=== PATIENT | female | born 1990 | race Caucasian/White ===

== ENCOUNTER 2017-12-31 16:10 | Emergency (ER) | payer OTHER ==
[2017-12-31 16:27] VITALS: BMI 23.8
--- NOTE | 2017-12-31 16:28 | PDOC ---
Rapid Medical Evaluation Time Seen by Provider: 12/31/17 16:24 Medical Evaluation: Allergies Allergy/AdvReac Type Severity Reaction Status Date / Time No Known Allergies Allergy Verified 12/31/17 16:24 12/31/17 16:25 I have performed a brief in-person evaluation of this patient. The patient presents with a chief complaint of: , 6 weeks with abdominal pain since Saturday States pain started in mid abdomen, now in lower mid pubic area Reports nausea, denies , vomiting diarrhea cramping or vaginal bleeding Pertinent physical exam findings are: NAD even and unlabored non tender abdomen I have ordered the following: urine , urinalysis The patient will proceed to the ED for further evaluation.
[2017-12-31 17:28] LABS: HCG,QUALITATIVE URINE Positive
[2017-12-31 17:29] LABS: URINE APPEARANCE SLCLOUDY; URINE BILIRUBIN NEGATIVE (<2.0 mg/dL); URINE COLOR YELLOW; URINE GLUCOSE (UA) NEGATIVE (NEGATIVE); URINE KETONE TRACE (NEGATIVE); URINE LEUK ESTERASE 2+ (NEGATIVE); URINE NITRITE NEGATIVE (NEGATIVE); URINE PROTEIN NEGATIVE (NEGATIVE); URINE UROBILINOGEN NEGATIVE mg/dL (0.2-1.0)
[2017-12-31 17:38] LABS: EPI CELLS FEW /HPF (FEW); URINE MUCUS RARE
[2017-12-31 17:39] LABS: BASO % 0.9 % (0-2.0); HEMATOCRIT 38.7 % (32.4-45.2); HEMOGLOBIN 12.8 GM/dL (10.7-15.3); LYMPH % 28.2 % (8-40); MCH 27.9 pg (25.7-33.7); MCHC 33.2 g/dl (32.0-36.0); MEAN CELL VOLUME 84.1 fl (80-96); MEAN PLT VOLUME 7.7 fl (7.5-11.1); NEUT % 59.9 % (42.8-82.8); PLATELET COUNT 240 K/MM3 (134-434); RDW 13.4 % (11.6-15.6); WHITE BLOOD COUNT 6.1 K/mm3 (4.0-10.0)
[2017-12-31] MEDS ORDERED: SODIUM CHLORIDE 1,000 ML IV SCH (17:45)
--- NOTE | 2017-12-31 17:45 | PDOC ---
History of Present Illness - General Chief Complaint: Pain Stated Complaint: ABDOMINAL PAIN @6 WKS Time Seen by Provider: 12/31/17 16:24 - History of Present Illness Initial Comments: 12/31/17 17:39 27 year old woman A0 presents with mid abdominal pain and nausea and constipation w/ lower caiber stool that was intermittent and started 5 days ago. The patient came in today because she was lifting something heavy 1 day ago and felt that her abdominal pain worsened and is now described as pins and needles. The pain does not increase or decrease with eating. She has no history of STDs. [facility] November 14. Past History - Past Medical History Allergies/Adverse Reactions: Allergies Allergy/AdvReac Type Severity Reaction Status Date / Time No Known Allergies Allergy Verified 12/31/17 16:24 Home Medications: Ambulatory Orders Vitamins (Sjr) - 1 tab PO DAILY #30 tablet 09/01/13 Asthma: No Cancer: No Cardiac Disorders: No COPD: No Diabetes: No HTN: No Seizures: No Thyroid Disease: No Other medical history: 3 - Reproductive History Is Patient Now?: Yes Therapeutic (s) & number: Yes - Suicide/Smoking/Psychosocial Hx Smoking History: Never smoked Have you smoked in the past 12 months: No Information on smoking cessation initiated: No Hx Alcohol Use: No Drug/Substance Use Hx: No Substance Use Type: None Hx Substance Use Treatment: No *Physical Exam - Vital Signs Last Vital Signs Temp Pulse Resp BP Pulse Ox 98.9 F 67 16 111/72 99 12/31/17 16:24 12/31/17 16:24 12/31/17 16:24 12/31/17 16:24 12/31/17 16:24 ED Treatment Course - LABORATORY CBC & Chemistry Diagram: 12/31/17 17:28 12/31/17 17:28 - ADDITIONAL ORDERS Additional order review: Laboratory Results 12/31/17 17:08 Urine Color Yellow Urine Appearance Slcloudy Urine pH 6.0 Ur Specific [place] 1.026 Urine Protein Negative Urine Glucose (UA) Negative Urine Ketones Trace H Urine Blood Negative Urine Nitrite Negative Urine Bilirubin Negative Urine Urobilinogen Negative Ur Leukocyte Esterase 2+ H D Urine HCG, Qual Positive Medical Decision Making - Medical Decision Making 12/31/17 20:38 US: 4.7x4.4x3.7cm L complex ovarian cyst Roberto Carlos contacted will see patient in clinic. *DC/Admit/Observation/Transfer Diagnosis at time of Disposition: Abdominal pain, Ovarian cyst - Discharge Dispostion Disposition: HOME Condition at time of disposition: Stable Decision to Admit order: No - Referrals Referrals: Leonel Azevedo MD [Staff Physician] - - Patient Instructions Printed Discharge Instructions: DI for Ovarian Cyst, DI for Abdominal Pain -- Early Additional Instructions: You were seen in the ED for complaints of abdominal pain. In the ED you were evaluated with labwork and imaging. Your results were unremarkable. There does not appear to be an acute need for immediate hospitalization. You are advised to follow up with your primary care physician within 1 week. You were given a referral to [facility] and are advised to see them in 48 hours for repeat labwork and imaging. If you are unable to schedule a visit with [facility] please return to the ED w/in 48 hours. Return to the ED immediately if you experience worsening abdominal pain, vaginal bleeding or discharge, excess vomiting, diarrhea or fevers. Usted fue visto en el servicio de urgencias por quejas de dolor abdominal. En el servicio de urgencias se le evalu con trabajo de laboratorio e imgenes. Catrachita resultados no fueron notables. No parece quinn marco antonio necesidad aguda de hospitalizacin inmediata. Se recomienda realizar un seguimiento con rodriguez mdico de atencin primaria dentro de marco antonio semana. Recibi marco antonio derivacin a un obstetra / gineclogo y se le recomienda que los nicolle en 48 horas para repetir el trabajo de laboratorio y las imgenes. Si no puede programar marco antonio visita con un obstetra / gineclogo, regrese al ED dentro de las 48 horas. Regrese al servicio de urgencias inmediatamente si experimenta un empeoramiento del dolor abdominal, sangrado o flujo vaginal, exceso de vmitos, diarrea o fiebre. - Post Discharge Activity
[2017-12-31 18:19] LABS: ALBUMIN 4.1 g/dl (3.4-5.0); ALK PHOS 63 U/L (45-117); ANION GAP 6 MMOL/L (8-16); BILIRUBIN,TOTAL 0.4 mg/dL (0.2-1); BLOOD UREA NITROGEN 10 mg/dL (7-18); CALCIUM 9.2 mg/dL (8.5-10.1); CHLORIDE 106 mmol/L (98-107); CO2 25 mmol/L (21-32); CREATININE 0.4 mg/dL (0.55-1.3); GLUCOSE,RANDOM 81 mg/dL (74-106); POTASSIUM 3.9 mmol/L (3.5-5.1); SGOT/AST 13 U/L (15-37); SGPT/ALT 19 U/L (13-61); SODIUM 137 mmol/L (136-145); TOT PROT 7.8 g/dl (6.4-8.2)
[2017-12-31 18:54] VITALS: BP 104/65; PULSE 63; TEMP 98.4
--- NOTE | 2017-12-31 19:33 | PDOC ---
Attending Attestation - HPI HPI: 12/31/17 20:32 The patient is a 27 year old female(A0), 6 weeks with no significant PMH who presents to the emergency department with abdominal pain and nausea for 4 days. The patient states that her abdominal pain is located in the lower abdominal region and was worsened after heavy lifting and described the pain as pins and needles. The patient also reports some associated constipation for 5 days , describing very small bowel movements. The patient denies any other symptoms. She denies any vaginal bleed or discharge. She denies any fever, chills, vomiting, diarrhea, or urinary symptoms. She denies any chest pain, shortness of breath, headache of dizziness. The patient denies any other complaints. Documentation prepared by Cedrick Echeverria, acting as medical billing and coding instructor for Madeline Romero MD. - Physicial Exam PE: 12/31/17 20:35 GENERAL: The patient is in no acute distress. HEAD: Normal with no signs of trauma. EYES: PERRLA, EOMI, sclera anicteric, conjunctiva clear. ENT: Ears normal, nares patent, oropharynx clear without exudates. Moist mucous membranes. NECK: Normal range of motion, supple without lymphadenopathy, JVD, or masses. LUNGS: Breath sounds equal, clear to auscultation bilaterally. No wheezes, and no crackles. HEART:Regular rate and rhythm, normal S1 and S2 without murmur, rub or gallop. ABDOMEN: (+)lower abdominal crampy pain, suprapubic tenderness. Soft, normoactive bowel sounds. No guarding, no rebound. No masses palpable. EXTREMITIES: Normal range of motion, no edema. No clubbing or cyanosis. No erythema, or tenderness. NEUROLOGICAL: Cranial nerves II through XII grossly intact. Normal speech. No focal neurological deficits. MUSCULOSKELETAL: Back non-tender to palpation, no CVA tenderness SKIN: Warm, Dry, normal turgor, no rashes or lesions noted. Documentation prepared by Cedrick Echeverria, acting as medical billing and coding instructor for Madeline Romero MD. <Cedrick Echeverria - Last Filed: 12/31/17 20:35> - Resident Resident Name: Jen Chand - ED Attending Attestation I have performed the following: I have examined & evaluated the patient, The case was reviewed & discussed with the resident, I agree w/resident's findings & plan, Exceptions are as noted - Medical Decision Making 12/31/17 20:44 27 yo F presenting to the ER with a complaint of abdominal cramping pain No fevers or chills No vaginal bleeding (+) constipation B[facility] Blood Type : O+ US: fluid collection in the Uterus, ? too early to see gestation sac/ pole Left ovarian complex cyst, (+) flow, small fluid collection Will d/c to home with bowel regimen Pt told she MUST return for repeat BHCG and US I am not sure if the findings in the uterus represent a OR if the ovarian findings represent an ectopic Pt also counseled to return for severe pain, bleeding, dizziness, lightheadedness Pt told to see ob gyn physician assistant in 2 days and if she is unable to do so, she must come to the ER Clinical impression: abdominal pain in early vs. ectopic , initial presentation <Madeline Romero - Last Filed: 12/31/17 20:49>
== END 2017-12-31 20:44 | disposition home or self-care (01) ==
LOC: JER 16:10
PROC: 3E0337Z Introduction of Electrolytic and Water Balance Substance into Peripheral Vein, Percutaneous Approach (ICD-10-PCS; principal; 2017-12-31)
DX: O26.891 Other specified pregnancy related conditions, first trimester (principal); O34.81 Maternal care for other abnormalities of pelvic organs, first trimester; N83.292 Other ovarian cyst, left side; Z3A.01 Less than 8 weeks gestation of pregnancy
CPT/HCPCS: 36415; 76817-TC; 80053; 81003; 81015; 84702; 84703; 85025; 87086; 96360; 96361; 99283-25; J7030

== ENCOUNTER 2018-01-02 13:35 | Emergency (ER) | payer OTHER ==
[2018-01-02 13:40] VITALS: BP 102/65; PULSE 66; TEMP 98; BMI 22.4
--- NOTE | 2018-01-02 16:00 | PDOC ---
History of Present Illness - General Chief Complaint: Revisit,Wound Recheck Stated Complaint: FOLLOW UP Time Seen by Provider: 01/02/18 14:12 History Source: Patient, Old Records Exam Limitations: No Limitations - History of Present Illness Initial Comments: 01/02/18 15:53 HISTORY OF PRESENT ILLNESS: 27-year-old presents emergency department for reevaluation of beta levels and ultrasound. Patient was seen and evaluated in this emergency department on 12/31 which revealed transvaginal client technical specialist could not identify an intrauterine . At that time the patient's beta levels approximately 1000. Patient reports resolution of abdominal pain since that first visit and is here for reevaluation. No recent travel or sick contacts. PAST MEDICAL HISTORY: anemia SURGICAL HISTORY: Denies ALLERGIES: No known drug allergies REVIEW OF SYSTEMS General/Constitutional: Denies fever or chills. Denies weakness, weight change. HEENT: Denies change in vision. Denies ear pain or discharge. Denies sore throat. Cardiovascular: Denies chest pain or shortness of breath. Respiratory: Denies cough, wheezing, or hemoptysis. Gastrointestinal: Denies nausea, vomiting, diarrhea or constipation. Denies rectal bleeding. Genitourinary: Denies dysuria, frequency, or change in urination. Musculoskeletal: Denies joint or muscle swelling or pain. Denies neck or back pain. Skin and breasts: Denies rash or easy bruising. Neurologic: Denies headache, vertigo, loss of consciousness, or loss of sensation. Psychiatric: Denies depression or anxiety. Endocrine: Denies increased thirst. Denies abnormal weight change. Hematologic/Lymphatic: Denies anemia, easy bleeding, or history of blood clots. Allergic/Immunologic: Denies hives or skin allergy. Denies latex allergy. PHYSICAL EXAM General Appearance: Well-appearing, appropriately dressed. No apparent distress , no intoxication. HEENT: EOMI, PERRLA, normal ENT inspection, normal voice, TMs normal, pharynx normal. No conjunctival pallor. No photophobia, scleral icterus. Neck: Supple. Trachea midline. No tenderness, rigidity, carotid bruit, stridor , lymphadenopathy, or thyromegaly. Respiratory/Chest: Lungs CTAB. No shortness of breath, chest tenderness, respiratory distress, accessory muscle use. No crackles, rales, rhonchi, stridor , wheezing, dullness Cardiovascular: RRR. S1, S2. No JVD, murmur, bradycardia, tachycardia. Vascular Pulses: Dorsalis-Pedis (R): 2+, Dorsalis-Pedis (L): 2+ Gastrointestinal/Abdominal: Normal bowel sounds. Abdomen soft, non-distended. No tenderness or rebound tenderness. No organomegaly, pulsatile mass, guarding, hernia, hepatomegaly, splenomegaly. Lymphatic: No adenopathy, tenderness. Musculoskeletal/Extremities: Normal inspection. FROM of all extremities, normal capillary refill. Pelvis Stable. No CVA tenderness. No tenderness to extremities, pedal edema, swelling, erythema or deformity. Integumentary: Appropriate color, dry, warm. No cyanosis, erythema, jaundice or rash Neurologic: tour leader II-XII intact. Fully oriented, alert. Appropriate mood/affect. Motor strength 5/5. No appreciable EOM palsy, facial droop or sensory deficit. Past History - Past Medical History Allergies/Adverse Reactions: Allergies Allergy/AdvReac Type Severity Reaction Status Date / Time No Known Allergies Allergy Verified 01/02/18 13:36 Home Medications: Ambulatory Orders NK [No Known Home Medication] 01/02/18 Asthma: No Cancer: No Cardiac Disorders: No COPD: No Diabetes: No HTN: No Seizures: No Thyroid Disease: No - Reproductive History Therapeutic (s) & number: Yes - Immunization History Immunization Up to Date: Yes - Suicide/Smoking/Psychosocial Hx Smoking History: Never smoked Have you smoked in the past 12 months: No Hx Alcohol Use: No Drug/Substance Use Hx: No Substance Use Type: None Hx Substance Use Treatment: No *Physical Exam - Vital Signs Last Vital Signs Temp Pulse Resp BP Pulse Ox 98.0 F 66 18 102/65 100 01/02/18 13:37 01/02/18 13:37 01/02/18 13:37 01/02/18 13:37 01/02/18 13:37 ED Treatment Course - ADDITIONAL ORDERS Additional order review: Laboratory Results 01/02/18 14:15 Beta HCG, Quant 2517.7 - RADIOLOGY Radiology Studies Ordered: Category Date Time Status TRANSVAGINAL US PREG [US] Stat Ultrasound 01/02/18 14:19 Completed Medical Decision Making - Medical Decision Making 01/02/18 16:01 A/P: 27-year-old female here for follow-up beta and ultrasound testing Beta level 2 days ago was 1091. Ultrasound unable to visualize IUP at that time. Repeat beta, ultrasound, type and screen beta-2517 TVUS- No visible IUP. ?early vs. ectopic This patient is currently pain-free and had an appropriate increase in beta hCG I will discharge the patient home to follow up with her OB or return to the emergency department for 2 days for repeat blood and ultrasound testing. *DC/Admit/Observation/Transfer Diagnosis at time of Disposition: First trimester - Discharge Dispostion Disposition: HOME Condition at time of disposition: Stable Decision to Admit order: No - Referrals - Patient Instructions Additional Instructions: Return to your OB or the emergency department in 2 days for repeat blood testing and ultrasound. The OB clinic is located on to [facility] in [facility]. Return to the emergency department sooner if you experience any vaginal bleeding , severe pain, vaginal discharge or any other concerns. Regrese a rodriguez obstetra o al departamento de emergencias en 2 li para repetir las pruebas de carlos y la ecografa. La clnica OB se encuentra en [facility] en [facility]. Regrese al departamento de emergencias antes si experimenta sangrado vaginal, dolor intenso, flujo vaginal o cualquier otra inquietud. - Post Discharge Activity
== END 2018-01-02 16:04 | disposition home or self-care (01) ==
LOC: JERFT 13:35
DX: O36.80X0 Pregnancy with inconclusive fetal viability, not applicable or unspecified (principal); Z3A.01 Less than 8 weeks gestation of pregnancy
CPT/HCPCS: 36415; 76817-TC; 84702; 86850; 86900; 86901; 99281-25

== ENCOUNTER 2018-02-14 12:35 | Emergency (ER) | payer OTHER ==
[2018-02-14 12:50] VITALS: BP 101/54; PULSE 76; TEMP 97.9; BMI 22.6
--- NOTE | 2018-02-14 13:06 | PDOC ---
History of Present Illness - General Chief Complaint: Revisit,Radiology Variance Stated Complaint: FOLLOW UP () Time Seen by Provider: 02/14/18 12:50 History Source: Patient Exam Limitations: No Limitations - History of Present Illness Initial Comments: 02/14/18 13:05 27 yr female LMP 10/27/17 presents to ER for follow up. Pt has not had care as of yet. Pt seen in this ER last month for missed period. Today pt has no pain no vaginal bleeding. 02/14/18 13:10 Past History - Past Medical History Allergies/Adverse Reactions: Allergies Allergy/AdvReac Type Severity Reaction Status Date / Time No Known Allergies Allergy Verified 02/14/18 12:53 Home Medications: Ambulatory Orders NK [No Known Home Medication] 01/02/18 Asthma: No Cancer: No Cardiac Disorders: No COPD: No Diabetes: No HTN: No Seizures: No Thyroid Disease: No - Reproductive History Therapeutic (s) & number: Yes - Immunization History Immunization Up to Date: Yes - Suicide/Smoking/Psychosocial Hx Smoking History: Never smoked Have you smoked in the past 12 months: No Hx Alcohol Use: No Drug/Substance Use Hx: No Substance Use Type: None Hx Substance Use Treatment: No Review of Systems - Review of Systems Able to Perform ROS?: Yes Is the patient limited Lao proficient: No Constitutional: No: Symptoms Reported HEENTM: No: Symptoms Reported Respiratory: No: Symptoms reported Cardiac (ROS): No: Symptoms Reported ABD/GI: No: Symptoms Reported : No: Symptoms Reported Musculoskeletal: No: Symptoms Reported Integumentary: No: Symptoms Reported Neurological: No: Symptoms reported *Physical Exam - Vital Signs Last Vital Signs Temp Pulse Resp BP Pulse Ox 97.9 F 76 18 101/54 L 98 02/14/18 12:48 02/14/18 12:48 02/14/18 12:48 02/14/18 12:48 02/14/18 12:48 - Physical Exam General Appearance: Yes: Nourished, Appropriately Dressed HEENT: positive: EOMI, BORA, TMs Normal, Pharynx Normal Neck: positive: Supple. negative: Tender Respiratory/Chest: positive: Lungs Clear, Normal Breath Sounds Cardiovascular: positive: Regular Rhythm, Regular Rate Gastrointestinal/Abdominal: positive: Normal Bowel Sounds, Soft Musculoskeletal: positive: Normal Inspection Extremity: positive: Normal Capillary Refill, Normal Inspection, Normal Range of Motion Integumentary: positive: Normal Color, Dry, Warm Neurologic: positive: Fully Oriented, Alert, Normal Mood/Affect, Normal Response , Motor Strength 5/5 Moderate Sedation - Procedure Monitoring Vital Signs: Procedure Monitoring Vital Signs Temperature 97.9 F 02/14/18 12:48 Pulse Rate 76 02/14/18 12:48 Respiratory Rate 18 02/14/18 12:48 Blood Pressure 101/54 L 02/14/18 12:48 O2 Sat by Pulse Oximetry (%) 98 02/14/18 12:48 Medical Decision Making - Medical Decision Making 02/14/18 13:12 cc: missed period here for prosthetics technician eval pt has no pain or vaginal bleeding pt has not had care to date I will check urine pt is asymptomatic *DC/Admit/Observation/Transfer Diagnosis at time of Disposition: Positive urine test - Discharge Dispostion Disposition: HOME Condition at time of disposition: Good - Referrals Referrals: [facility] [Outside] Milli Patrick MD [Staff Physician] - - Patient Instructions Additional Instructions: please follow up with a abstract searcher/OB for further care of your start taking vitamins (any over the counter vitamins) sold at any pharmacy, [facility], [facility] , [facility] Return to ER for any ABDOMINAL PAIN , VAGINAL BLEEDING, BACK PAIN , FEVER OR ANY OTHER CONCERNING SYMPTOMS - Post Discharge Activity
[2018-02-14 13:09] LABS: HCG,QUALITATIVE URINE Positive
[2018-02-14 13:23] LABS: URINE APPEARANCE CLEAR; URINE BILIRUBIN NEGATIVE (<2.0 mg/dL); URINE COLOR YELLOW; URINE GLUCOSE (UA) NEGATIVE (NEGATIVE); URINE KETONE TRACE (NEGATIVE); URINE LEUK ESTERASE 2+ (NEGATIVE); URINE NITRITE NEGATIVE (NEGATIVE); URINE PROTEIN NEGATIVE (NEGATIVE); URINE UROBILINOGEN NEGATIVE mg/dL (0.2-1.0)
[2018-02-14 13:57] LABS: EPI CELLS FEW /HPF (FEW); URINE MUCUS RARE
== END 2018-02-14 13:20 | disposition home or self-care (01) ==
LOC: JERFT 12:35
DX: Z32.01 Encounter for pregnancy test, result positive (principal)
CPT/HCPCS: 81003; 81015; 84703; 99281-25

== ENCOUNTER 2018-09-02 13:45 | Inpatient (IN) | payer OTHER ==
[2018-09-02] MEDS ORDERED: BUTORPHANOL TARTRATE 1 MG/ML VIAL IVPB ONE (16:52)
[2018-09-02] MEDS ORDERED: ELECTROLYTE-148 SOLN 1,000 ML IV SCH (17:00)
--- NOTE | 2018-09-02 17:02 | HP ---
Past Medical History - Primary Care Physician PCP:: Aristeo Herrera - Admission Chief Complaint: labor History Source: Patient Limitations to Obtaining History: No Limitations - Past Medical History HEAD OF ADVERTISING: No: Alzheimer's, CVA, Dementia, Migraine, Multiple Sclerosis, Peripheral Neuropathy, Parkinson's, Seizure, Syncope, TIA, Vertigo, Other Cardiovascular: No: AFIB, Aneurysm, Aortic Insufficiency, Aortic Stenosis, CAD, CHF, Deep Vein Thrombosis, HTN, Hyperlipdemia, PR, Mitral Insufficiency, Mitral Stenosis, Murmur, Pulmonary Hypertension, Other Pulmonary: No: Asthma, Bronchitis, Cancer, COPD, O2 Dependent, Pneumonia, Previously Intubated, Pulmonary Embolus, Pulmonary Fibrosis, Sleep Apnea, Other Gastrointestinal: No: Ascites, Cancer, Constipation, Crohn's Disease, Diverticulitis, Diverticulosis, Esophageal Varices, Gastritis, GERD, GI Bleed, Hemorrhoids, Hiatal Hernia, Inflamatory Bowel Disease, Irritable Bowel Disease, Pancreatitis, Peptic Ulcer Disease, Ulcerative Colitis, Other Hepatobiliary: No: Cirrhosis, Cholelithiasis, Cholecystitis, Choledocholithiasis , Hepatitis A, Hepatitis B, Hepatitis C, Other Renal/: No: Renal Failure, Renal Inusuff, BPH, Cancer, Hematuria, Hemodialysis , Neurogenic Bladder, Renal Calculi, UTI, Other Reproductive: No: Ectopic , Endometriosis, Fibroids, PID, Polycystic Ovary Syndrome, Postmenopausal, Other ...: 3 ...Para: 1 ...Term: 1 ...Spon : 1 ...LMP: 11/14/17 ... Weeks Gestation by Dates: 39.5 ...EDC by Dates: 09/04/18 ...EDC by Sono: 09/04/18 Heme/Onc: No: Anemia, B12 Deficiency, Bleeding Disorder, Cancer, Current Chemotherapy, Current Radiation Therapy, Hemochromatosis, Hypercoaguable State, Myeloproliferative Synd, Sickle Cell Disease, Sickle Cell Trait, Thrombocytopenia, Other Infectious Disease: No: AIDS, C-Diff, Herpes Zoster, HIV, MRSA, STD's, Tuberculosis, VREF, Other Psych: Yes: Other (h/o ?sucidal attempt on 05/24/13 by taking 8 tabs of asprin 325 mg each, after argument with .she was evaluated in er, & consult by psychiatrist was done in er & cleared.. Presently she has no sucidal ideations.) . No: Addictions, Anxiety, Bipolar, Depression, Panic, Psychosis, Schizophrenia Musculoskeletal: No: Bursitis, Chronic low back pain, Hemiparesis, Hemiplegia, Osteoarthritis, Paraplegia, Other Rheumatology: No: Fibromyalgia, Gout, Lupus, Rheumatoid Arthritis, Sarcoidosis, Vasculitis, Other ENT: No: Allergic Rhinitis, Sinusitis, Other Endocrine: No: Karlos's Disease, [place]'s Disease, Diabetes Insipidus, Diabetes Mellitus, Hyperparathyroidism, Hyperthyroidism, Hypothyroidism, Osteopenia, SIADH, Other Dermatology: No: Basal Cell, Cellulitis, Eczema, Melanoma, Psoriasis, Squamous Cell, Other - Past Surgical History Past Surgical History: Yes: None Hx Myomectomy: No Hx Transabdominal Cerclage: No - Smoking History Smoking history: Never smoked Have you smoked in the past 12 months: No - Alcohol/Substance Use Hx Alcohol Use: No History of Substance Use: reports: None - Social History History of Recent Travel: No Home Medications - Allergies Allergies/Adverse Reactions: Allergies Allergy/AdvReac Type Severity Reaction Status Date / Time No Known Allergies Allergy Verified 02/14/18 12:53 - Home Medications Home Medications: Ambulatory Orders Vitamins (Sjr) - 1 tab PO DAILY 09/02/18 Family Disease History - Family Disease History Family History: Unremarkable Review of Systems - Review of Systems Constitutional: reports: No Symptoms Eyes: reports: No Symptoms HENT: reports: No Symptoms Neck: reports: No Symptoms Cardiovascular: reports: No Symptoms Respiratory: reports: No Symptoms Gastrointestinal: reports: No Symptoms Genitourinary: reports: No Symptoms Breasts: reports: No Symptoms Reported Musculoskeletal: reports: No Symptoms Integumentary: reports: No Symptoms Hematology/Lymphatic: reports: No Symptoms Psychiatric: reports: No Symptoms Physical Exam - Maternity Vital Signs: Vital Signs Temperature 98.3 F 09/02/18 14:53 Pulse Rate 70 09/02/18 14:53 Respiratory Rate 20 09/02/18 14:53 Blood Pressure 121/69 09/02/18 14:53 O2 Sat by Pulse Oximetry (%) Constitutional: Yes: Well Nourished Eyes: Yes: WNL HENT: Yes: WNL Neck: Yes: Supple Breast(s): Yes: Other (deferred) - Abdominal Exam/OB Number of Fetuses: Single Presentation: Vertex Contractions: Yes Regularity: Regular Intensity: Unaware Monitor Mode: External Category: I Accelerations: Uniform Decelerations: None - Vaginal Exam/OB Vaginal Bleediing: No Speculum Exam: No Dilatation (cm): 5 Effacement (%): 60 Amniotic Membrane Status: Bulging Presentation: Vertex/Position Station: -3 - Physical Exam Musculoskeletal: Yes: WNL Extremities: Yes: WNL Edema: Yes Edema: LLE: Trace, RLE: Trace Integumentary: Yes: WNL ...Motor Strength: WNL Psychiatric: Yes: Alert, Oriented - Labs Lab Results: ordered Imaging - Results Other: Other (Official sonos reviewed) Problem List - Problems (1) Code(s): Z34.90 - ENCNTR FOR SUPRVSN OF NORMAL , UNSP, UNSP TRIMESTER Qualifiers: Weeks of gestation: 39 weeks Qualified Code(s): Z3A.39 - 39 weeks gestation of Assessment/Plan 27 y/o @ 39.5wks, active labor, GBS negative, reassuring maternal and statuses. -Expectant management -IV pain control as requested by patient
[2018-09-02 17:31] VITALS: BMI 27.3
[2018-09-02] MEDS ORDERED: DEXTROSE 5%-LACTATED RINGERS 1,000 ML IV SCH (18:00)
[2018-09-02] MEDS ORDERED: PROMETHAZINE HCL 25 MG/1 ML VIAL ONE (18:17)
[2018-09-02] MEDS ORDERED: BUTORPHANOL TARTRATE 1 MG/ML VIAL ONE (18:17)
[2018-09-02 18:23] LABS: BASO % 0.4 % (0-2.0); EOS % 0.1 % (0-4.5); HEMATOCRIT 35.4 % (32.4-45.2); HEMOGLOBIN 11.7 GM/dL (10.7-15.3); LYMPH % 8.4 % (8-40); MCH 26.9 pg (25.7-33.7); MCHC 32.9 g/dl (32.0-36.0); MEAN CELL VOLUME 81.8 fl (80-96); MEAN PLT VOLUME 9.2 fl (7.5-11.1); MONO % 4.4 % (3.8-10.2); NEUT % 86.7 % (42.8-82.8); PLATELET COUNT 185 K/MM3 (134-434); RBC 4.33 M/mm3 (3.60-5.2); RDW 13.6 % (11.6-15.6); WHITE BLOOD COUNT 11.1 K/mm3 (4.0-10.0)
[2018-09-02 18:26] LABS: INR 0.92 (0.83-1.09); PROTHROMBIN TIME (PATIENT) 10.9 SEC (9.7-13.0)
[2018-09-02] MEDS ORDERED: OXYTOCIN 20 UNITS in 0.9% NS 20 UNIT/1,000 ML INFUS.BAG IV ONE (18:29)
--- NOTE | 2018-09-02 18:31 | PN ---
Ante-Partal Exam - Subjective Subjective: Patient requested pain control Vital Signs: Vital Signs Temperature 98.6 F 09/02/18 18:00 Pulse Rate 74 09/02/18 18:00 Respiratory Rate 20 09/02/18 18:00 Blood Pressure 117/80 09/02/18 18:00 O2 Sat by Pulse Oximetry (%) Bleeding: No Headache: No Visual changes: No Right upper quadrant pain: No - Contractions Contractions: Yes Regularity: Regular Intensity: Mod/Strong Monitor Mode: External - Exam during Labor Heart Rate: 130 (reactive) Variability: Moderate Category: I Monitor Accelerations: Present Monitor Decelerations: None Exam: Vaginal Dilatation (cm): 6 Effacement (%): 60 Meconium Staining: Moderate Station: -3 Remarks: asynclitic, moderate meconium fluid - Assessment/Plan Assessment/Plan: 27 y/o @ 39.5wks, active labor, cat I FHT, S/P AROM, desiring Epidural but 1 hour delay due to anesthesia logistics. -IV pain control -Expectant management -Anticipate VD.
[2018-09-02] MEDS ORDERED: LIDOCAINE HCL 1% PRESERVATIVE FREE - 30ML VIAL ONE (18:34)
[2018-09-02] MEDS ORDERED: PROMETHAZINE HCL 25 MG/1 ML VIAL IVPB ONE (18:45)
[2018-09-02 19:03] LABS: BLOOD UREA NITROGEN 7.2 mg/dL (7-18); CALCIUM 8.5 mg/dL (8.5-10.1); CREATININE 0.5 mg/dL (0.55-1.3); POTASSIUM 3.8 mmol/L (3.5-5.1)
--- NOTE | 2018-09-02 19:48 | PN ---
Ante-Partal Exam - Subjective Subjective: Patient evaluated, for pain, and progression of labor Vital Signs: Vital Signs Temperature 98.7 F 09/02/18 19:00 Pulse Rate 72 09/02/18 19:00 Respiratory Rate 18 09/02/18 19:00 Blood Pressure 128/87 09/02/18 19:00 O2 Sat by Pulse Oximetry (%) Bleeding: No Headache: No Visual changes: No Right upper quadrant pain: No - Contractions Contractions: Yes Intensity: Strong Monitor Mode: External - Exam during Labor Heart Rate: 140 Variability: Moderate Category: I Monitor Accelerations: Present Monitor Decelerations: None Exam: Vaginal Dilatation (cm): 8 Effacement (%): 90 Presentation: Vertex (27 y/o @ 39.5 wks, AROM with meconium fluid, reassuring status, S/P IV pain control) Station: -2 - Assessment/Plan Assessment/Plan: 27 y/o @ 39.5 wks, AROM with meconium fluid, reassuring status, S/P IV pain control -Expectant management -Anticipate VD
[2018-09-02] MEDS ORDERED: WITCH HAZEL 50% (TUCKS) 40 PAD/JAR PAD TP PRN (20:32)
[2018-09-02] MEDS ORDERED: ACETAMINOPHEN 325 MG TABLET (FP) PO PRN (20:32)
[2018-09-02] MEDS ORDERED: IBUPROFEN 600 MG TABLET (FP) PO PRN (20:32)
[2018-09-02] MEDS ORDERED: BENZOCAINE 20% 57 GM BOTTLE TP PRN (20:32)
[2018-09-02] MEDS ORDERED: BENZOCAINE 28 GM HEMORRHOIDAL OINTMENT TP PRN (20:32)
--- NOTE | 2018-09-02 20:41 | PN ---
Delivery - Delivery Type of Anesthesia: None Episiotomy/Laceration: 2nd degree EBL (cc): 250 Delivery, Single - Stages of Labor Placenta: Yes: Spontaneous - Condition of Infant Radio Sales Account Executive/Fashion Intern Present: Yes Infant Gender: Female Position: OA - [place] Feeding Plan Initial Plan: Exclusive throughout hospitalization Remarks - Remarks Remarks: Patient delivered OA with maternal expulsive efforts, restituted to SHANITA, no nuchal cord. Shoulders delivered with difficulty followed by the rest of the body. Cord clamped after delay and placenta delivered spontaneously and intact, 3 VC. Exam revealed a 2nd degree lacerations, repaired with 2.0 byosin in standard fashion. Excellent hemostasis and reapproximation noted. Fundus is firm and rectal exam intact. Sponge/instrument count correct x 2 and confirmed by the nurse.
[2018-09-02] MEDS ORDERED: OXYTOCIN 20 UNITS in 0.9% NS 20 UNIT/1,000 ML INFUS.BAG IV SCH (20:45)
--- NOTE | 2018-09-03 07:08 | PN ---
Post Progress Note - Subjective Subjective: AMbulating, voiding, tolerating PO, lochia decreased Type of Delivery: Vital Signs: Vital Signs Temperature 98 F 09/03/18 06:00 Pulse Rate 62 09/03/18 06:00 Respiratory Rate 18 09/03/18 06:00 Blood Pressure 106/50 L 09/03/18 06:00 O2 Sat by Pulse Oximetry (%) 100 09/02/18 21:30 Breast Exam: Yes: Other (deferred) Uterus: Yes: Fundus Firm Abdomen/GI: Yes: Abdomen soft Lochia, amount: Small Extremities: Yes: Calves non-tender Perineum: Yes: Laceration Activity: Ambulating - Labs Labs: CBC WBC 11.1 K/mm3 (4.0-10.0) H 09/02/18 17:55 RBC 4.33 M/mm3 (3.60-5.2) 09/02/18 17:55 Hgb 11.7 GM/dL (10.7-15.3) 09/02/18 17:55 Hct 35.4 % (32.4-45.2) 09/02/18 17:55 MCV 81.8 fl (80-96) 09/02/18 17:55 MCH 26.9 pg (25.7-33.7) 09/02/18 17:55 MCHC 32.9 g/dl (32.0-36.0) 09/02/18 17:55 RDW 13.6 % (11.6-15.6) 09/02/18 17:55 Plt Count 185 K/MM3 (134-434) D 09/02/18 17:55 MPV 9.2 fl (7.5-11.1) D 09/02/18 17:55 Absolute Neuts (auto) 9.6 K/mm3 (1.5-8.0) H 09/02/18 17:55 Neutrophils % 86.7 % (42.8-82.8) H D 09/02/18 17:55 Lymphocytes % 8.4 % (8-40) D 09/02/18 17:55 Monocytes % 4.4 % (3.8-10.2) 09/02/18 17:55 Eosinophils % 0.1 % (0-4.5) D 09/02/18 17:55 Basophils % 0.4 % (0-2.0) 09/02/18 17:55 Nucleated RBC % 0 % (0-0) 09/02/18 17:55 Problem List - Problems (1) Code(s): Z34.90 - ENCNTR FOR SUPRVSN OF NORMAL , UNSP, UNSP TRIMESTER Qualifiers: Weeks of gestation: 39 weeks Qualified Code(s): Z3A.39 - 39 weeks gestation of Assessment/Plan PPD # 1 in stable condition, all questions answered and PP instructions care reviewed -Continue PP care -AM CBC -Anticipate D/C home tomorrow
[2018-09-03 07:19] LABS: BASO % 0.5 % (0-2.0); EOS % 0.4 % (0-4.5); HEMATOCRIT 31.2 % (32.4-45.2); HEMOGLOBIN 10.5 GM/dL (10.7-15.3); MCH 27.4 pg (25.7-33.7); MCHC 33.7 g/dl (32.0-36.0); MEAN CELL VOLUME 81.3 fl (80-96); MEAN PLT VOLUME 9.2 fl (7.5-11.1); MONO % 9.6 % (3.8-10.2); NEUT % 77.5 % (42.8-82.8); PLATELET COUNT 183 K/MM3 (134-434); RBC 3.84 M/mm3 (3.60-5.2); RDW 13.2 % (11.6-15.6); WHITE BLOOD COUNT 12.2 K/mm3 (4.0-10.0)
[2018-09-03] MEDS ORDERED: DIPHTH,PERTUSS(ACELL),TET 0.5 ML DISP.SYRIN IM ONE (10:00)
[2018-09-03] MEDS: PRENATAL VITAMINS W/ FOLIC ACID TABLET (FP) PO SCH (11:18)
--- NOTE | 2018-09-04 07:27 | DS ---
Physical Examination Vital Signs: Vital Signs Temperature 98.3 F 09/03/18 21:30 Pulse Rate 65 09/03/18 21:30 Respiratory Rate 17 09/03/18 21:30 Blood Pressure 108/61 09/03/18 21:30 O2 Sat by Pulse Oximetry (%) 100 09/02/18 21:30 Constitutional: Yes: Well Nourished, No Distress, Calm Eyes: Yes: WNL, Conjunctiva Clear, EOM Intact HENT: Yes: WNL, Atraumatic, Normocephalic Neck: Yes: WNL, Supple, Trachea Midline Cardiovascular: Yes: WNL, Regular Rate and Rhythm Respiratory: Yes: WNL, Regular, CTA Bilaterally Gastrointestinal: Yes: WNL, Normal Bowel Sounds Musculoskeletal: Yes: WNL Extremities: Yes: WNL Edema: No Integumentary: Yes: WNL Neurological: Yes: WNL, Alert, Oriented ...Motor Strength: WNL Psychiatric: Yes: WNL Labs: CBC, BMP 09/03/18 06:30 09/02/18 17:55 Discharge Summary Reason For Visit: LABOR Current Active Problems (Acute) Procedures: Principal: Hospital Course: Patient presented in active labor She had an uncomplicated She met all milestones She was discharged home in stable condition Romy Erwin MD - Instructions Diet, Activity, Other Instructions: Regular Diet Follow up in 4-6 weeks in the office Referrals: Aristeo Herrera MD [Staff Physician] - Disposition: HOME - Home Medications Comprehensive Discharge Medication List: Ambulatory Orders Vitamins (Sjr) - 1 tab PO DAILY 09/02/18 Ibuprofen 600 mg PO Q6H PRN #30 tablet 09/03/18
[2018-09-04 08:32] VITALS: BP 103/56; PULSE 61; TEMP 98.4
[2018-09-04] MEDS: PRENATAL VITAMINS W/ FOLIC ACID TABLET (FP) PO SCH (09:39)
== END 2018-09-04 14:00 | disposition home or self-care (01) | DRG 560 ==
LOC: JDEL 13:45 → JLDR 16:45 → J3W 22:26
PROVIDERS: ADMIT Student in an Organized Health Care Education/Training Program; ATTEND Student in an Organized Health Care Education/Training Program
PROC: 10E0XZZ Delivery of Products of Conception, External Approach (ICD-10-PCS; principal; 2018-09-02)
PROC: 0KQM0ZZ Repair Perineum Muscle, Open Approach (ICD-10-PCS; 2018-09-02)
DX: O77.0 Labor and delivery complicated by meconium in amniotic fluid (principal); O70.1 Second degree perineal laceration during delivery; Z3A.39 39 weeks gestation of pregnancy; Z37.0 Single live birth
CPT/HCPCS: 36415; 59409; 80048; 85025; 85610; 86593; 86850; 86900; 86901; 90715

== ENCOUNTER 2020-12-28 21:32 | Emergency (ER) | payer OTHER ==
[2020-12-28 21:47] VITALS: BP 128/82; PULSE 69; TEMP 98.3; BMI 24.5
== END 2020-12-29 00:42 | disposition home or self-care (01) ==
LOC: JERFT 21:32
DX: B86 Scabies (principal)
CPT/HCPCS: 99283-25

== ENCOUNTER 2021-01-05 19:20 | Emergency (ER) | payer OTHER ==
[2021-01-05 19:53] VITALS: BP 117/85; PULSE 71; TEMP 98.6; BMI 24.5
[2021-01-05] MEDS ORDERED: SODIUM CHLORIDE 1,000 ML IV STA (21:34)
[2021-01-05] MEDS ORDERED: FAMOTIDINE 20 MG/50 ML IVPB 20 MG/50 ML MG IVPB ONE ×2 (21:34→21:51)
[2021-01-05] MEDS ORDERED: ACETAMINOPHEN 1000 MG/100 ML VIAL IVPB ONE (21:34)
[2021-01-05] MEDS ORDERED: ACETAMINOPHEN INJECTION 100 ML IVPB ONE (21:51)
[2021-01-05 22:12] LABS: BASO % 0.5 % (0-2.0); EOS % 3.2 % (0-4.5); HEMOGLOBIN 13.2 GM/dL (10.7-15.3); LYMPH % 16.6 % (8-40); MCH 28.1 pg (25.7-33.7); MCHC 33.7 g/dl (32.0-36.0); MEAN CELL VOLUME 83.3 fl (80-96); MEAN PLT VOLUME 7.2 fl (7.5-11.1); MONO % 10.3 % (3.8-10.2); NEUT % 69.4 % (42.8-82.8); PLATELET COUNT 223 10^3/uL (134-434); RBC 4.68 M/mm3 (3.60-5.2); RDW 13.1 % (11.6-15.6); WHITE BLOOD COUNT 8.1 K/mm3 (4.0-10.0)
[2021-01-05 22:15] LABS: ALBUMIN 3.5 g/dl (3.4-5.0); BLOOD UREA NITROGEN 17.1 mg/dL (7-18); CALCIUM 8.6 mg/dL (8.5-10.1)
[2021-01-05 22:18] LABS: CREATININE 0.6 mg/dL (0.55-1.3)
[2021-01-05 22:20] LABS: PH,URINE 5.5 (5.0-8.0); URINE APPEARANCE CLEAR; URINE BILIRUBIN NEGATIVE (NEGATIVE); URINE COLOR YELLOW; URINE GLUCOSE (UA) NEGATIVE (NEGATIVE); URINE KETONE NEGATIVE (NEGATIVE); URINE LEUK ESTERASE NEGATIVE (NEGATIVE); URINE NITRITE NEGATIVE (NEGATIVE); URINE PROTEIN TRACE (NEGATIVE)
[2021-01-05 22:20] LABS: BILIRUBIN,TOTAL 0.2 mg/dL (0.2-1); TOT PROT 7.5 g/dl (6.4-8.2)
[2021-01-05 23:00] LABS: HCG,QUALITATIVE URINE NEGATIVE
== END 2021-01-06 00:28 | disposition home or self-care (01) ==
LOC: JER 19:20 → JERFT 19:20
PROC: 3E033NZ Introduction of Analgesics, Hypnotics, Sedatives into Peripheral Vein, Percutaneous Approach (ICD-10-PCS; principal; 2021-01-05)
PROC: 3E033GC Introduction of Other Therapeutic Substance into Peripheral Vein, Percutaneous Approach (ICD-10-PCS; 2021-01-05)
PROC: 3E0337Z Introduction of Electrolytic and Water Balance Substance into Peripheral Vein, Percutaneous Approach (ICD-10-PCS; 2021-01-05)
DX: R10.13 Epigastric pain (principal)
CPT/HCPCS: 36415; 76705-TC; 80053; 81003; 83690; 84703; 85025; 87086; 99285-25; C9803; J0131; U0003; U0005

== ENCOUNTER 2021-04-07 22:51 | Emergency (ER) | payer OTHER ==
[2021-04-07 22:59] VITALS: BP 115/68; PULSE 64; TEMP 98; BMI 25.4
== END 2021-04-07 23:44 | disposition home or self-care (01) ==
LOC: JERFT 22:51
DX: J02.9 Acute pharyngitis, unspecified (principal)
CPT/HCPCS: 87651; 99283-25; C9803; U0003; U0005

== ENCOUNTER 2021-07-03 18:43 | Emergency (ER) | payer OTHER ==
[2021-07-03 19:02] VITALS: BP 107/67; PULSE 69; TEMP 98.4; BMI 25.4
[2021-07-03] MEDS ORDERED: DEXAMETHASONE SOD PHOSPHATE 10 MG/1 ML VIAL PO ONE (20:40)
[2021-07-03] MEDS ORDERED: DEXAMETHASONE SOD PHOSPHATE 10 MG/1 ML VIAL ONE (20:42)
== END 2021-07-03 21:23 | disposition home or self-care (01) ==
LOC: JERFT 18:43 → JER 18:43 → JERFT 21:23
DX: R09.89 Other specified symptoms and signs involving the circulatory and respiratory systems (principal)
CPT/HCPCS: 70360-TC-FY; 99283-25; J1100

== ENCOUNTER 2021-10-16 13:08 | Emergency (ER) | payer OTHER ==
[2021-10-16 13:58] VITALS: BP 128/65; PULSE 74; RESP 16; TEMP 97.8; BMI 27.3
== END 2021-10-16 15:05 | disposition home or self-care (01) ==
LOC: JERFT 13:08
DX: R21 Rash and other nonspecific skin eruption (principal)
CPT/HCPCS: 99282-25

== ENCOUNTER 2022-12-17 20:20 | Emergency (ER) | payer OTHER ==
[2022-12-17 20:58] VITALS: BP 109/78; PULSE 83; RESP 18; TEMP 98.1; BMI 26.4
[2022-12-17] MEDS ORDERED: IBUPROFEN 600 MG TABLET (FP) PO ONE ×2 (22:13→22:14)
== END 2022-12-17 22:16 | disposition home or self-care (01) ==
LOC: JERFT 20:20 → JER 20:20 → JERFT 22:16
DX: J02.9 Acute pharyngitis, unspecified (principal); R09.82 Postnasal drip; Z20.822 Contact with and (suspected) exposure to COVID-19
CPT/HCPCS: 0241U-QW; 87651; 99283-25

== ENCOUNTER 2023-08-12 04:50 | Inpatient (IN) | payer OTHER ==
[2023-08-12 06:09] VITALS: BMI 31.5
[2023-08-12] MEDS: ELECTROLYTE-148 SOLN 1,000 ML IV SCH (06:10)
[2023-08-12 06:45] LABS: POTASSIUM 3.9 mmol/L (3.5-5.1)
[2023-08-12 06:46] LABS: BLOOD UREA NITROGEN 10.7 mg/dL (7-18); CALCIUM 8.7 mg/dL (8.5-10.1)
[2023-08-12 06:48] LABS: BASO % 0.6 % (0-2.0); EOS % 1.1 % (0-4.5); HEMATOCRIT 33.8 % (32.4-45.2); HEMOGLOBIN 11.1 GM/dL (10.7-15.3); LYMPH % 11.3 % (8-40); MCH 26.1 pg (25.7-33.7); MCHC 32.8 g/dl (32.0-36.0); MEAN CELL VOLUME 79.5 fl (80-96); MEAN PLT VOLUME 8.3 fl (7.5-11.1); MONO % 5.6 % (3.8-10.2); NEUT % 81.4 % (42.8-82.8); PLATELET COUNT 226 10^3/uL (134-434); RBC 4.25 M/mm3 (3.60-5.2); RDW 14.9 % (11.6-15.6)
[2023-08-12 06:50] LABS: CREATININE 0.5 mg/dL (0.55-1.3)
[2023-08-12 06:54] LABS: INR 0.89 (0.83-1.09); PROTHROMBIN TIME (PATIENT) 10.1 SEC (9.7-13.0)
[2023-08-12 06:57] LABS: ACTIVATED PTT 26.4 SECONDS (25.2-36.5)
[2023-08-12] MEDS ORDERED: PROMETHAZINE HCL 25 MG/1 ML VIAL ONE (08:01)
[2023-08-12] MEDS ORDERED: BUTORPHANOL TARTRATE 2 MG/ML VIAL ONE (08:01)
[2023-08-12] MEDS: BUTORPHANOL TARTRATE 2 MG/ML VIAL IVPB ONE (08:05)
[2023-08-12] MEDS: PROMETHAZINE HCL 25 MG/1 ML VIAL IVPB ONE (08:05)
[2023-08-12] MEDS ORDERED: OXYTOCIN 20 UNITS in 0.9% NS 20 UNIT/1,000 ML INFUS.BAG IV ONE ×2 (08:06→12:00)
[2023-08-12] MEDS: OXYTOCIN 20 UNITS in 0.9% NS 20 UNIT/1,000 ML INFUS.BAG IV SCH (10:40)
[2023-08-12] MEDS ORDERED: ACETAMINOPHEN 325 MG TABLET (FP) PO PRN (11:00)
[2023-08-12] MEDS ORDERED: BENZOCAINE 20% 57 GM BOTTLE TP PRN (11:00)
[2023-08-12] MEDS ORDERED: WITCH HAZEL 50% (TUCKS) 40 PAD/JAR PAD TP PRN (11:00)
[2023-08-12] MEDS ORDERED: METHYLERGONOVINE MALEATE 0.2 MG/1 ML AMP IM PRN (11:00)
[2023-08-12] MEDS ORDERED: BISACODYL 10 MG SUPP.RECT RC PRN (11:00)
[2023-08-12] MEDS ORDERED: oxyCODONE HCL 5 MG TABLET PO PRN (11:00)
[2023-08-12] MEDS ORDERED: BENZOCAINE 28 GM HEMORRHOIDAL OINTMENT TP PRN (11:00)
[2023-08-12 11:06] LABS: CORD BASE EXCESS -1.8 mmol/L (0-2); CORD BASE EXCESS -2.7 mmol/L (0-2); CORD HCO3 23.3 mmHg (20-29); CORD HCO3 25.7 mmHg (20-29); CORD PCO2 40.9 mmHg (30-78); CORD PCO2 59.5 mmHg (30-78); CORD pH 7.253 (7.14-7.44); CORD pH 7.373 (7.14-7.44)
[2023-08-12] MEDS: IBUPROFEN 600 MG TABLET (FP) PO PRN (19:52)
[2023-08-13 08:33] LABS: BASO % 0.8 % (0-2.0); EOS % 1.5 % (0-4.5); HEMATOCRIT 27.8 % (32.4-45.2); HEMOGLOBIN 9.4 GM/dL (10.7-15.3); MCH 26.7 pg (25.7-33.7); MCHC 33.8 g/dl (32.0-36.0); MEAN CELL VOLUME 78.9 fl (80-96); MEAN PLT VOLUME 7.8 fl (7.5-11.1); MONO % 8.2 % (3.8-10.2); NEUT % 69.5 % (42.8-82.8); PLATELET COUNT 203 10^3/uL (134-434); RBC 3.52 M/mm3 (3.60-5.2); RDW 15.1 % (11.6-15.6); WHITE BLOOD COUNT 8.9 K/mm3 (4.0-10.0)
[2023-08-13] MEDS: DIPHTH,PERTUSS(ACELL),TET 0.5 ML DISP.SYRIN IM ONE (10:05)
[2023-08-13] MEDS ORDERED: SENNOSIDES/DOCUSATE COMBO (SENNA PLUS) TABLET (UD) PO PRN (22:00)
[2023-08-14 11:45] VITALS: BP 94/47; PULSE 72; RESP 16; TEMP 98.3
== END 2023-08-14 12:40 | disposition home or self-care (01) | DRG 560 ==
LOC: JDEL 04:50 → JLDR 05:40 → J3W 13:12
PROVIDERS: ADMIT Family Medicine; ATTEND Family Medicine
PROC: 10E0XZZ Delivery of Products of Conception, External Approach (ICD-10-PCS; principal; 2023-08-12)
PROC: 0KQM0ZZ Repair Perineum Muscle, Open Approach (ICD-10-PCS; 2023-08-12)
DX: O48.0 Post-term pregnancy (principal); O70.1 Second degree perineal laceration during delivery; Z3A.40 40 weeks gestation of pregnancy; Z37.0 Single live birth
CPT/HCPCS: 36415; 36600; 59409; 80048; 82803; 85025; 85610; 85730; 86780; 86850; 86900; 86901; 90715